=== PATIENT | female | born 1955 | race Caucasian/White ===

== ENCOUNTER 2016-09-07 15:57 | Outpatient (CLI) | payer BC ==
[2016-02-09 11:32] VITALS: BMI 18.6
[~2016-09-07 15:57] MED LIST: ALENDRONATE SOD35 MG PO; HYDROCODONE-APA1 TAB PO; RESTORIL15 MG PO
== END 2016-09-07 16:34 ==
LOC: D.MAMMO 15:57
DX: Z12.31 Encounter for screening mammogram for malignant neoplasm of breast (principal)

== ENCOUNTER 2018-02-22 12:51 | Outpatient (CLI) | payer BC ==
[2016-02-09 11:32] VITALS: BMI 18.6
== END 2018-02-22 23:59 | disposition home or self-care (01) ==
LOC: D.MAMMO 12:51
DX: Z12.31 Encounter for screening mammogram for malignant neoplasm of breast (principal)

== ENCOUNTER 2018-11-20 09:30 | Outpatient (CLI) | payer BC ==
[2016-02-09 11:32] VITALS: BMI 18.6
== END 2018-11-20 10:00 | disposition home or self-care (01) ==
LOC: D.MAMMO 09:30
PROVIDERS: ATTEND Obstetrics & Gynecology
DX: Z12.31 Encounter for screening mammogram for malignant neoplasm of breast (principal)